=== PATIENT | female | born 1975 | race African-American/Black ===

== ENCOUNTER 2017-04-19 14:19 | Emergency (ER) | payer OTHER ==
[~2017-04-19] VITALS: Ht 157.5 cm; Wt 91.0 kg
[2017-04-19] MEDS ORDERED: KETOROLAC 30MG/ML VIAL IV STA (18:20)
[2017-04-19] MEDS ORDERED: SODIUM CHLORIDE 0.9% 1,000 ML IV ONE (18:20)
[2017-04-19 18:55] LABS: BASOPHILS % 0.5 % (0.0-2.0); EOSINOPHILS % 2.9 % (0.0-5.0); HEMATOCRIT. 34.3 % (36.0-48.0); HEMOGLOBIN. 11.1 g/dL (12.0-16.0); LYMPHOCYTES % 25.2 % (20.0-50.0); MEAN CORPUSCULAR HEMOGLOBIN 23.4 pg (28.0-32.0); MEAN CORPUSCULAR VOLUME 72.4 fL (81.0-99.0); MEAN PLATELET VOLUME 7.6 fl (7.4-10.4); MONOCYTES % 8.9 % (2.0-8.0); NEUTROPHILS % 62.5 % (40.0-76.0); PLATELET 449 x1000/uL (130-400); RED BLOOD CELL COUNT 4.74 mill/uL (4.2-5.4); RED CELL DISTRIBUTION WIDTH 16.5 % (11.6-14.6)
[2017-04-19 19:50] LABS: CARBON DIOXIDE 29 mEq/L (21-32); CHLORIDE 102 mEq/L (98-107)
[2017-04-19] MEDS ORDERED: POTASSIUM CHLORIDE 20MEQ TABLET SR PO ONE (20:00)
[2017-04-19 20:14] LABS: CLARITY URINE CLOUDY (CLEAR); COLOR URINE YELLOW (YELLOW); KETONES URINE NEGATIVE (NEGATIVE); LEUKOCYTE ESTERASE URINE 1+ (NEGATIVE); NITRITE URINE NEGATIVE (NEGATIVE); OCCULT BLOOD URINE NEGATIVE (NEGATIVE); PROTEIN URINE 1+ (NEGATIVE); SPECIFIC GRAVITY URINE 1.015 (1.005-1.030)
[2017-04-19] MEDS ORDERED: ALBUTEROL (0.083%) 2.5MG/3ML NEB HHN ONE (20:30)
[2017-04-19] MEDS ORDERED: AMOXICILLIN 500 MG CAPSULE PO ONE (20:45)
[2017-04-19 22:05] VITALS: BP 141/88
== END 2017-04-19 22:14 | disposition home or self-care (01) ==
LOC: ER 15:16
DX: B34.9 Viral infection, unspecified (principal); E87.6 Hypokalemia; I10 Essential (primary) hypertension
CPT/HCPCS: 36415; 71045; 80053; 80307; 80329; 81001; 81025; 85025; 94640; 96361; 96374; 99285; J1885; J7611; Z7610; J7030

== ENCOUNTER 2018-07-26 11:17 | Inpatient (IN) | payer OTHER ==
[~2018-07-26] VITALS: Ht 158.8 cm; Wt 93.9 kg
[2018-07-26] MEDS ORDERED: ONDANSETRON HCL 4MG/2ML INJ IV STA (12:38)
[2018-07-26] MEDS ORDERED: SODIUM CHLORIDE 0.9% 1,000 ML IV ONE (12:38)
[2018-07-26] MEDS ORDERED: KETOROLAC 30MG/ML VIAL IV STA (12:38)
[2018-07-26 12:53] LABS: HEMATOCRIT. 34.2 % (36.0-48.0); HEMOGLOBIN. 11.3 g/dL (12.0-16.0); MEAN CORPUSCULAR HEMOGLOBIN 24.7 pg (28.0-32.0); MEAN CORPUSCULAR VOLUME 74.7 fL (81.0-99.0); MEAN PLATELET VOLUME 7.1 fl (7.4-10.4); PLATELET 322 x1000/uL (130-400); RED BLOOD CELL COUNT 4.58 mill/uL (4.2-5.4); RED CELL DISTRIBUTION WIDTH 15.5 % (11.6-14.6)
[2018-07-26 12:59] LABS: CHLORIDE 103 mEq/L (98-107)
[2018-07-26 13:00] LABS: INR 1.1; PROTHROMBIN TIME 11.2 sec (9.6-11.0)
[2018-07-26 13:08] LABS: CLARITY URINE CLEAR (CLEAR); COLOR URINE DARK YELLOW (YELLOW); KETONES URINE NEGATIVE (NEGATIVE); LEUKOCYTE ESTERASE URINE 2+ (NEGATIVE); NITRITE URINE NEGATIVE (NEGATIVE); OCCULT BLOOD URINE NEGATIVE (NEGATIVE); PH URINE 5.5 (4.5-8.0); PROTEIN URINE NEGATIVE (NEGATIVE); SPECIFIC GRAVITY URINE 1.019 (1.005-1.030)
[2018-07-26 13:17] LABS: PLATELET ESTIMATE NORMAL
[2018-07-26] MEDS ORDERED: MAGNESIUM/ALUMINUM HYDROXIDE/SIMETHICONE 30ML UDC PO PRN (16:30)
[2018-07-26] MEDS ORDERED: DIPHENHYDRAMINE 50MG/ML VIAL IV PRN (16:30)
[2018-07-26] MEDS ORDERED: LEVOFLOXACIN 500MG PREMIX 100 ML IV SCH (16:30)
[2018-07-26] MEDS ORDERED: GUAIFENESIN 200MG/10ML SUGAR FREE UDC PO PRN (16:30)
[2018-07-26] MEDS ORDERED: LORAZEPAM 2MG/ML CPJ IV PRN (16:30)
[2018-07-26] MEDS ORDERED: POTASSIUM CHLORIDE 20MEQ TABLET SR PO ONE (16:30)
[2018-07-26] MEDS ORDERED: HYDROCODONE/ACETAMINOPHEN 10/325MG TABLET PO PRN (16:30)
[2018-07-26] MEDS ORDERED: DOCUSATE SODIUM 100MG CAPSULE PO PRN (16:30)
[2018-07-26] MEDS ORDERED: ONDANSETRON HCL 4MG/2ML INJ IV PRN (16:30)
[2018-07-26] MEDS ORDERED: IPRATROPIUM/ALBUTEROL 0.5-3(2.5)MG/3ML NEB INH PRN (16:30)
[2018-07-26] MEDS ORDERED: ACETAMINOPHEN 325MG TABLET PO PRN (16:30)
[2018-07-26] MEDS ORDERED: HYDROMORPHONE HCL/PF 2MG/ML CPJ IV PRN (22:00)
[2018-07-26] MEDS ORDERED: SODIUM CHLORIDE 0.9% INJ 3ML FLUSH IVF SCH (22:00)
[2018-07-26] MEDS ORDERED: TAMS0.4C31 PO (22:23)
[2018-07-26] MEDS ORDERED: LOSA50TA20 PO (22:23)
[2018-07-26] MEDS ORDERED: NAPR-677 PO (22:25)
[2018-07-26 22:41] VITALS: BP 155/98
[2018-07-26 22:42] VITALS: BP 155/98
[2018-07-26] MEDS ORDERED: INFLUENZA VIRUS VACCINE(AFLURIA) 0.5ML SYR IM ONE (22:45)
[2018-07-26] MEDS: SODIUM CHLORIDE 0.45% 1,000 ML IV SCH (23:00)
[2018-07-26] MEDS: ENOXAPARIN 30MG/0.3ML SYR SUBCUT SCH (23:05)
[2018-07-26 23:57] LABS: CREATINE KINASE 146 IU/L (26-192)
[2018-07-26 23:58] LABS: CREATINE KINASE MB FRACTION < 1.0 ng/mL (0.5-3.6)
[2018-07-27 04:00] VITALS: BP 148/84
[2018-07-27 07:59] VITALS: BP 196/116
[2018-07-27] MEDS: ENOXAPARIN 30MG/0.3ML SYR SUBCUT SCH ×2 (08:20→20:33)
[2018-07-27] MEDS: CLONIDINE 0.1MG TABLET PO PRN (08:20)
[2018-07-27 08:52] LABS: BASOPHILS % 0.3 % (0.0-2.0); EOSINOPHILS % 3.3 % (0.0-5.0); HEMATOCRIT. 31.8 % (36.0-48.0); HEMOGLOBIN. 10.5 g/dL (12.0-16.0); LYMPHOCYTES % 11.3 % (20.0-50.0); MEAN CORPUSCULAR HEMOGLOBIN 24.8 pg (28.0-32.0); MEAN CORPUSCULAR VOLUME 74.7 fL (81.0-99.0); MEAN PLATELET VOLUME 7.1 fl (7.4-10.4); MONOCYTES % 7.4 % (2.0-8.0); NEUTROPHILS % 77.7 % (40.0-76.0); PLATELET 318 x1000/uL (130-400); RED BLOOD CELL COUNT 4.26 mill/uL (4.2-5.4); RED CELL DISTRIBUTION WIDTH 15.6 % (11.6-14.6)
[2018-07-27 09:09] LABS: CHLORIDE 105 mEq/L (98-107)
[2018-07-27 09:17] LABS: T4 FREE 1.46 ng/dL (0.76-1.46)
[2018-07-27 09:19] LABS: CREATINE KINASE MB FRACTION < 1.0 ng/mL (0.5-3.6)
[2018-07-27 09:21] LABS: CREATINE KINASE 142 IU/L (26-192)
[2018-07-27] MEDS: HYDRALAZINE 20MG/ML VIAL IV PRN ×2 (09:57→20:13)
[2018-07-27] MEDS ORDERED: POTASSIUM CHLORIDE 20MEQ TABLET SR PO SCH (10:30)
[2018-07-27 12:00] VITALS: BP 169/90
[2018-07-27] MEDS: LEVOFLOXACIN 500MG PREMIX 100 ML IV SCH (14:44)
[2018-07-27] MEDS: LOSARTAN POTASSIUM 50 MG TABLET PO SCH (18:43)
[2018-07-27] MEDS: SODIUM CHLORIDE 0.45% 1,000 ML IV SCH (18:49)
[2018-07-27 20:00] VITALS: BP 164/105
[2018-07-27 21:30] VITALS: BP 158/89
[2018-07-28] VITALS: BP 166/89
[2018-07-28] MEDS: CLONIDINE 0.1MG TABLET PO PRN ×3 (01:26→21:16)
[2018-07-28 04:00] VITALS: BP 152/99
[2018-07-28 08:00] VITALS: BP 149/89
[2018-07-28] MEDS: ENOXAPARIN 30MG/0.3ML SYR SUBCUT SCH ×2 (09:29→21:21)
[2018-07-28] MEDS: LOSARTAN POTASSIUM 50 MG TABLET PO SCH (09:29)
[2018-07-28 12:00] VITALS: BP_SYST 178
[2018-07-28] MEDS: LEVOFLOXACIN 500MG PREMIX 100 ML IV SCH (13:08)
[2018-07-28] MEDS: SODIUM CHLORIDE 0.45% 1,000 ML IV SCH (13:08)
[2018-07-28] MEDS ORDERED: METHYLPREDNISOLONE SOD SUCC 125 MG/2 ML VIAL IV NR (13:30)
[2018-07-28] MEDS: LORATADINE 10MG TABLET PO SCH (13:52)
[2018-07-28] MEDS: ACETYLCYSTEINE 100MG/ML 10% VIAL 4ML INH SCH (15:36)
[2018-07-28] MEDS: IPRATROPIUM/ALBUTEROL 0.5-3(2.5)MG/3ML NEB HHN SCH ×2 (15:42→20:52)
[2018-07-28 16:00] VITALS: BP 141/99
[2018-07-28 20:00] VITALS: BP 161/89
[2018-07-28] MEDS: FLUTICASONE PROPIONATE 50MCG/SPRAY BOTTLE BOTHNSTRLS SCH (21:16)
[2018-07-29] VITALS: BP 157/96
[2018-07-29] MEDS: IPRATROPIUM/ALBUTEROL 0.5-3(2.5)MG/3ML NEB HHN SCH ×5 (00:56→16:15)
[2018-07-29] MEDS: ACETYLCYSTEINE 100MG/ML 10% VIAL 4ML INH SCH ×3 (00:57→16:10)
[2018-07-29 04:00] VITALS: BP 133/79
[2018-07-29 07:10] LABS: HEMATOCRIT. 33.1 % (36.0-48.0); HEMOGLOBIN. 10.9 g/dL (12.0-16.0); MEAN CORPUSCULAR HEMOGLOBIN 24.8 pg (28.0-32.0); MEAN CORPUSCULAR VOLUME 75.3 fL (81.0-99.0); MEAN PLATELET VOLUME 7.3 fl (7.4-10.4); PLATELET 422 x1000/uL (130-400); RED CELL DISTRIBUTION WIDTH 15.7 % (11.6-14.6)
[2018-07-29 07:45] LABS: CHLORIDE 107 mEq/L (98-107)
[2018-07-29 08:00] VITALS: BP 138/78
[2018-07-29] MEDS: LORATADINE 10MG TABLET PO SCH (08:59)
[2018-07-29] MEDS: LOSARTAN POTASSIUM 50 MG TABLET PO SCH (08:59)
[2018-07-29] MEDS ORDERED: PREDNISONE 20MG TABLET PO SCH (09:00)
[2018-07-29] MEDS: ENOXAPARIN 30MG/0.3ML SYR SUBCUT SCH (09:06)
[2018-07-29 09:39] LABS: PLATELET ESTIMATE INCREASED
[2018-07-29] MEDS: FLUTICASONE PROPIONATE 50MCG/SPRAY BOTTLE BOTHNSTRLS SCH (09:47)
[2018-07-29 12:00] VITALS: BP 133/78
[2018-07-29] MEDS: LEVOFLOXACIN 500MG PREMIX 100 ML IV SCH (14:15)
[2018-07-29] MEDS: SODIUM CHLORIDE 0.45% 1,000 ML IV SCH (14:15)
[2018-07-29 14:19] VITALS: BP 133/78
[2018-07-30] MEDS ORDERED: PREDNISONE 20MG TABLET PO SCH (09:00)
== END 2018-07-29 17:35 | disposition home or self-care (01) | DRG 133 ==
LOC: ER 11:17 → 5WST 13:56 → EDBEDREQ 13:57 → EDBEDREQTM 13:57 → ENRESERV 20:51
PROVIDERS: ADMIT Internal Medicine; ATTEND Internal Medicine
DX: J96.00 Acute respiratory failure, unspecified whether with hypoxia or hypercapnia (principal); R65.10 Systemic inflammatory response syndrome (SIRS) of non-infectious origin without acute organ dysfunction; E66.01 Morbid (severe) obesity due to excess calories; L97.419 Non-pressure chronic ulcer of right heel and midfoot with unspecified severity; J44.0 Chronic obstructive pulmonary disease with (acute) lower respiratory infection; J20.9 Acute bronchitis, unspecified; J98.11 Atelectasis; N39.0 Urinary tract infection, site not specified; I10 Essential (primary) hypertension; E87.6 Hypokalemia; F32.9 Major depressive disorder, single episode, unspecified; Z77.22 Contact with and (suspected) exposure to environmental tobacco smoke (acute) (chronic); Z86.718 Personal history of other venous thrombosis and embolism; Z68.37 Body mass index [BMI] 37.0-37.9, adult
CPT/HCPCS: 36415; 71045; 80048; 80061; 82550; 82553; 83036; 83605; 83880; 84439; 84443; 84484; 85379; 87804; 93005; 93306; 93970; 94640; 96361; 96374; 96375; 99285; C1893; J0360; J1170; J1650; J1885; J1956; J2060; J2405; J2930; J7030; J7512; J7608; J7620

== ENCOUNTER 2018-09-05 15:01 | Emergency (ER) | payer OTHER ==
[~2018-09-05 15:01] MED LIST: LOSA50TA20 PO; NAPR-677 PO; TAMS0.4C31 PO
[2018-09-05] MEDS ORDERED: MORPHINE SULFATE 4 MG/ML CPJ (NOT FOR IM USE) IV STA (16:50)
[2018-09-05] MEDS ORDERED: KETOROLAC 30MG/ML VIAL IV STA (16:50)
[2018-09-05] MEDS ORDERED: ONDANSETRON HCL 4MG/2ML INJ IV STA (16:50)
[2018-09-05] MEDS ORDERED: SODIUM CHLORIDE 0.9% 1,000 ML IV ONE (16:50)
[2018-09-05] MEDS ORDERED: HYDRALAZINE 20MG/ML VIAL IV ONE (17:00)
[2018-09-05 17:13] LABS: CHLORIDE 103 mEq/L (98-107)
[2018-09-05 17:14] LABS: CLARITY URINE CLEAR (CLEAR); COLOR URINE YELLOW (YELLOW); KETONES URINE NEGATIVE (NEGATIVE); LEUKOCYTE ESTERASE URINE 2+ (NEGATIVE); NITRITE URINE NEGATIVE (NEGATIVE); OCCULT BLOOD URINE NEGATIVE (NEGATIVE); PROTEIN URINE NEGATIVE (NEGATIVE); SPECIFIC GRAVITY URINE 1.016 (1.005-1.030); UROBILINOGEN URINE 0.2 E.U./dL (0.2-1.0)
[2018-09-05 17:17] LABS: BASOPHILS % 0.9 % (0.0-2.0); EOSINOPHILS % 0.3 % (0.0-5.0); HEMATOCRIT. 38.5 % (36.0-48.0); MEAN CORPUSCULAR HEMOGLOBIN 25.6 pg (28.0-32.0); MEAN CORPUSCULAR VOLUME 75.7 fL (81.0-99.0); MEAN PLATELET VOLUME 7.9 fl (7.4-10.4); MONOCYTES % 3.6 % (2.0-8.0); NEUTROPHILS % 83.2 % (40.0-76.0); PLATELET 463 x1000/uL (130-400); RED BLOOD CELL COUNT 5.08 mill/uL (4.2-5.4); RED CELL DISTRIBUTION WIDTH 16.7 % (11.6-14.6)
[2018-09-05] MEDS ORDERED: CLONIDINE 0.2MG TABLET PO ONE (18:45)
[2018-09-05 20:18] VITALS: BP 147/97
== END 2018-09-05 20:21 | disposition home or self-care (01) ==
LOC: ER 15:01
DX: K80.80 Other cholelithiasis without obstruction (principal); I10 Essential (primary) hypertension; Z98.890 Other specified postprocedural states
CPT/HCPCS: 36415; 74176; 76705; 80053; 81003; 81025; 83690; 85025; 96361; 96374; 96375; 99284; J0360; J1885; J2270; J2405; J7030